=== PATIENT | female | born 2000 | race African-American/Black ===

== ENCOUNTER 2023-08-15 09:14 | Emergency (ER) | payer MEDICAID ==
[~2023-08-15] VITALS: Ht 170.2 cm; Wt 90.7 kg
[2023-08-15 09:19] VITALS: BP 124/85; PULSE 78; RESP 18; TEMP 96.7; O2SAT 99
[2023-08-15] MEDS ORDERED: KETOROLAC 60 MG/2 ML VIAL IM ONE (10:15)
[2023-08-15] MEDS ORDERED: ONDA8TAB87 PO (10:24)
[2023-08-15] MEDS ORDERED: IBUP-2213 PO (10:24)
[2023-08-15 10:45] VITALS: BP 131/74; PULSE 69; RESP 14; TEMP 97.1; O2SAT 100
== END 2023-08-15 10:42 | disposition home or self-care (01) ==
LOC: MED 09:14
DX: R10.13 Epigastric pain (principal); R11.2 Nausea with vomiting, unspecified; J02.9 Acute pharyngitis, unspecified
CPT/HCPCS: 96372; 99283; J1885